=== PATIENT | male | born 1995 | race African-American/Black ===

== ENCOUNTER 2017-06-06 01:42 | Emergency (ER) | payer SELFPAY ==
[~2017-06-06] VITALS: Ht 170.2 cm; Wt 61.2 kg
--- NOTE | 2017-06-06 01:47 | ED.ADGEN ---
Past History Past Medical History: No Pertinent History, Other Past Surgical History: No Surgical History Alcohol Use: None Drug Use: None Adult General Chief Complaint Chief Complaint " .. I ate a slice of moldy bread the other day.. and I ve been sick since.. vomiting... no stool... ",," I actually started vomiting Monday after heavy drinking.. but today I think I am vomiting now because of moldy bread my mom gave me.." HPI HPI Patient is a 21 year old male who presents with above hx and complaints of abdomen pain. Pt. complaints of generalized abdomen pain. No travel or specific ill contacts. Pt. denies immuno suppression. Possible food poisoning. No travel or trauma hx. Does of hx heavy alcohol use this past weekend. . Review of Systems Review of Systems Constitutional: Denies fever or chills [] Eyes: Denies change in visual acuity, redness, or eye pain [] HENT: Denies nasal congestion or sore throat [] Respiratory: Denies cough or shortness of breath [] Cardiovascular: No additional information not addressed in HPI [] GIcomplailnts of abdominal pain, nausea, vomiting, . Denies bloody stools or diarrhea [] : Denies dysuria or hematuria [] Musculoskeletal: Denies back pain or joint pain [] Integument: Denies rash or skin lesions [] Neurologic: Denies headache, focal weakness or sensory changes [] Endocrine: Denies polyuria or polydipsia [] Family History Family History Non-contributory Current Medications Current Medications Current Medications Medications (Trade) Dose Ordered Sig/[place] Start Time Stop Time Status Last Admin Dose Admin Famotidine (Pepcid) 20 mg 1X ONCE 06/06/17 02:00 06/06/17 02:02 DC 06/06/17 02:20 20 MG Info (Do NOT chart on this entry -- for MONITORING) 1 each PRN DAILY PRN 06/06/17 03:15 06/06/17 04:38 DC Iohexol (Omnipaque 240 Mg/ml) 30 ml 1X ONCE 06/06/17 03:30 06/06/17 03:31 DC 06/06/17 03:26 30 ML Iohexol (Omnipaque 300 Mg/ml) 75 ml 1X ONCE 06/06/17 03:30 06/06/17 03:31 DC 06/06/17 03:26 75 ML Lactated Ringer's 1,000 ml @ 1,000 mls/hr Q1H 06/06/17 02:00 06/06/17 02:20 DC 06/06/17 02:19 1,000 MLS/HR Magnesium Hydroxide (Milk Of Magnesia) 2,400 mg 1X ONCE 06/06/17 02:30 06/06/17 02:31 DC 06/06/17 02:40 2,400 MG Ondansetron HCl (Zofran) 8 mg 1X ONCE 06/06/17 03:00 06/06/17 03:01 DC 06/06/17 02:56 8 MG Allergies Allergies Allergies Coded Allergies Type Severity Reaction Last Updated Verified amoxicillin Allergy Intermediate 06/06/17 Yes Physical Exam Physical Exam Constitutional: Well developed, well nourished, in mild to moderate distress, non-toxic appearance. [] HENT: Normocephalic, atraumatic, bilateral external ears normal, oropharynx moist, no oral exudates, nose normal. [] Eyes: PERRLA, EOMI, conjunctiva normal, no discharge. [] Neck: Normal range of motion, no tenderness, supple, no stridor. [] Cardiovascular:Heart rate regular rhythm, no murmur [] Lungs & Thorax: Bilateral breath equal apex with scattered wheezes on auscultation [] Abdomen: Bowel sounds normal, soft, generalize tenderness, no masses, no pulsatile masses. [] Pt. declines rectal at this time. Skin: Warm, dry, no erythema, no rash. [] Back: No tenderness, no CVA tenderness. [] Extremities: No tenderness, no cyanosis, no clubbing, ROM intact, no edema. [] Klaudia. . Psoas or heel tap. Neurologic: Alert and oriented X 3, normal motor function, normal sensory function, no focal deficits noted. [] Psychologic: Affect normal, judgement normal, mood normal. [] Current Patient Data Vital Signs Vital Signs Date Time Temp Pulse Resp B/P (MAP) Pulse Ox O2 Delivery O2 Flow Rate FiO2 06/06/17 04:26 98.5 54 20 133/77 (95) 99 Room Air Lab Results Laboratory Tests Test 06/06/17 02:05 06/06/17 03:45 White Blood Count 9.2 x10^3/uL (4.0-11.0) Red Blood Count 5.24 x10^6/uL (4.30-5.70) Hemoglobin 16.4 g/dL (13.0-17.5) Hematocrit 48.8 % (39.0-53.0) Mean Corpuscular Volume 93 fL (79-100) Mean Corpuscular Hemoglobin 31 pg (25-35) Mean Corpuscular Hemoglobin Concent 34 g/dL (31-37) Red Cell Distribution Width 12.1 % (11.5-14.5) Platelet Count 157 x10^3/uL (140-400) Neutrophils (%) (Auto) 75 % (31-73) H Lymphocytes (%) (Auto) 18 % (24-48) L Monocytes (%) (Auto) 6 % (0-9) Eosinophils (%) (Auto) 1 % (0-3) Basophils (%) (Auto) 1 % (0-3) Neutrophils # (Auto) 6.9 x10^3uL (1.8-7.7) Lymphocytes # (Auto) 1.7 x10^3/uL (1.0-4.8) Monocytes # (Auto) 0.5 x10^3/uL (0.0-1.1) Eosinophils # (Auto) 0.1 x10^3/uL (0.0-0.7) Basophils # (Auto) 0.1 x10^3/uL (0.0-0.2) Sodium Level 140 mmol/L (136-145) Potassium Level 3.6 mmol/L (3.5-5.1) Chloride Level 102 mmol/L (98-107) Carbon Dioxide Level 31 mmol/L (21-32) Anion Gap 7 (6-14) Blood Urea Nitrogen 15 mg/dL (8-26) Creatinine 1.1 mg/dL (0.7-1.3) Estimated GFR (Cockcroft-Gault) 100.4 BUN/Creatinine Ratio 14 (6-20) Glucose Level 109 mg/dL (70-99) H Calcium Level 9.5 mg/dL (8.5-10.1) Total Bilirubin 1.1 mg/dL (0.2-1.0) H Direct Bilirubin 0.2 mg/dL (0.0-0.2) Aspartate Amino Transferase (AST) 38 U/L (15-37) H Alanine Aminotransferase (ALT) 81 U/L (16-63) H Alkaline Phosphatase 50 U/L (46-116) Total Protein 7.6 g/dL (6.4-8.2) Albumin 4.4 g/dL (3.4-5.0) Albumin/Globulin Ratio 1.4 (1.0-1.7) Amylase Level 111 U/L (25-115) Lipase 144 U/L (73-393) Urine Collection Type Unknown Urine Color Yellow Urine Clarity Clear Urine pH 6.5 Urine Specific [place] 1.020 Urine Protein Neg (NEG-TRACE) Urine Glucose (UA) Neg mg/dL (NEG) Urine Ketones (Stick) Neg mg/dL (NEG) Urine Blood Trace (NEG) Urine Nitrite Neg (NEG) Urine Bilirubin Neg (NEG) Urine Urobilinogen Dipstick 1 mg/dL (0.2 mg/dL) Urine Leukocyte Esterase Neg (NEG) Urine RBC 0 /HPF (0-2) Urine WBC Occ /HPF (0-4) Urine Squamous Epithelial Cells Occ /LPF Urine Bacteria 0 /HPF (0-FEW) Urine Opiates Screen Neg (NEG) Urine Methadone Screen Neg (NEG) Urine Barbiturates Neg (NEG) Urine Phencyclidine Screen Neg (NEG) Urine Amphetamine/Methamphetamine Neg (NEG) Urine Benzodiazepines Screen Neg (NEG) Urine Cocaine Screen Neg (NEG) Urine Cannabinoids Screen Pos (NEG) Urine Ethyl Alcohol Neg (NEG) EKG EKG [] Radiology/Procedures Radiology/Procedures My interpretation acute abdomen film shows, with chest no acute cardiopulmonary findings. No free air under the diaphragm. Nonspecific bowel gas pattern. There is stool in the colon. CT= shows no hydronephrosis or obstructive bowel pattern. Course & Med Decision Making Course & Med Decision Making Pertinent Labs and Imaging studies reviewed. (See chart for details) Pt. to remain on clear fluid diet x 48 hrs. Follow up labs and xray s here with primary care. Tylenol and ibuprofen for discomfort. Zofran for nausea and vomiting. Zantac 150 bid. Must follow up. [] Final Impression Final Impression 1. Abdomen pain [] 2. Nausea and vomiting 3. Gastritis Problems: Dragon Disclaimer Dragon Disclaimer This electronic medical record was generated, in whole or in part, using a voice recognition dictation system. GRAZYNA NEWTON MD Jun 06, 2017 01:47
[2017-06-06] MEDS ORDERED: IV RINGERS SOLUTION,LACTATED 1,000 ML IV SCH (02:00)
[2017-06-06] MEDS ORDERED: ONDANSETRON PF 4 MG/2 ML VIAL. IV ONE ×2 (02:00→03:00)
[2017-06-06] MEDS ORDERED: FAMOTIDINE 20 MG/2 ML VIAL IVP ONE (02:00)
[2017-06-06 02:27] LABS: BASO # 0.1 x10^3/uL (0.0-0.2); BASO % 1 % (0-3); EOS # 0.1 x10^3/uL (0.0-0.7); EOS % 1 % (0-3); HEMATOCRIT 48.8 % (39.0-53.0); HEMOGLOBIN 16.4 g/dL (13.0-17.5); LYMPH # 1.7 x10^3/uL (1.0-4.8); LYMPH % 18 % (24-48); MEAN CORPUSCULAR HEMOGLOBIN 31 pg (25-35); MEAN CORPUSCULAR HGB CONC 34 g/dL (31-37); MEAN CORPUSCULAR VOLUME 93 fL (79-100); MONO # 0.5 x10^3/uL (0.0-1.1); MONO % 6 % (0-9); NEUT # 6.9 x10^3uL (1.8-7.7); NEUT % 75 % (31-73); PLATELET COUNT 157 x10^3/uL (140-400); RED BLOOD COUNT 5.24 x10^6/uL (4.30-5.70); RED CELL DISTRIBUTION WIDTH 12.1 % (11.5-14.5); WHITE BLOOD COUNT 9.2 x10^3/uL (4.0-11.0)
[2017-06-06] MEDS ORDERED: MAGNESIUM HYDROXIDE 2,400 MG/30 ML ORAL.SUSP. PO ONE (02:30)
[2017-06-06 02:43] LABS: ALBUMIN 4.4 g/dL (3.4-5.0); ALBUMIN/GLOBULIN RATIO 1.4 (1.0-1.7); CALCIUM 9.5 mg/dL (8.5-10.1); CREATININE 1.1 mg/dL (0.7-1.3); DIRECT BILIRUBIN 0.2 mg/dL (0.0-0.2); GFR 100.4; POTASSIUM 3.6 mmol/L (3.5-5.1); TOTAL BILIRUBIN 1.1 mg/dL (0.2-1.0); TOTAL PROTEIN 7.6 g/dL (6.4-8.2)
[2017-06-06] MEDS ORDERED: CONTRAST GIVEN MC PRN (03:15)
[2017-06-06] MEDS ORDERED: IOHEXOL 300 MG/ML 75 ML VIAL. IV ONE (03:30)
[2017-06-06] MEDS ORDERED: IOHEXOL 240 MG/ML 50ML VIAL. PO ONE (03:30)
--- NOTE | 2017-06-06 03:54 | RAD ---
INDICATION: [id number] Omni 300 75cc: Severe left and lower abdominal pain tonight with nausea and vomiting. No priors. COMPARISON: None. TECHNIQUE: Axial CT images were obtained through the abdomen and pelvis with intravenous contrast. One or more of the following individualized dose reduction techniques were utilized for this examination: 1. Automated exposure control; 2. Adjustment of the mA and/or kV according to patient size; 3. Use of iterative reconstruction technique. FINDINGS: Chest Base: Partially imaged without gross abnormality. Vessels: No abdominal aortic aneurysm. Liver/Biliary: No intrahepatic biliary duct dilation. Pancreas: No peripancreatic edema. Spleen: Normal. Kidneys/Adrenal: No hydronephrosis. Bladder: No definite adjacent inflammation. GI: No free air. No bowel dilation to suggest obstruction. Moderate stool is seen throughout the colon. Appendix is not well seen. IMPRESSION: 1. No evidence of hydronephrosis or bowel obstruction. Electronically signed by: Goyo Rodriguez MD (06/06/2017 3:51 AM) [id number]
[2017-06-06 03:57] LABS: BARBITURATES NEG (NEG); BENZODIAZEPINES NEG (NEG); CANNABINOIDS POS (NEG); COCAINE NEG (NEG); METHADONE NEG (NEG); OPIATES NEG (NEG); PHENCYCLIDINE NEG (NEG)
[2017-06-06 03:59] LABS: BILIRUBIN,URINE NEG (NEG); CLARITY,URINE CLEAR; COLOR,URINE YELLOW; GLUCOSE,URINE NEG (NEG); NITRITE,URINE NEG (NEG); UROBILINOGEN,URINE 1 mg/dL (0.2 mg/dL)
[2017-06-06 04:00] LABS: BACTERIA,URINE 0 /HPF (0-FEW); RBC,URINE 0 /HPF (0-2); SQUAMOUS EPITHELIAL CELL,UR OCC /LPF; WBC,URINE OCC /HPF (0-4)
[2017-06-06 04:03] LABS: AMPHETAMINE/METHAMPHETAMINE NEG (NEG)
[2017-06-06] MEDS ORDERED: ONDA8TAB12 PO (04:15)
[2017-06-06] MEDS ORDERED: RANI150T6 PO (04:15)
[2017-06-06 04:26] VITALS: BP 133/77
--- NOTE | 2017-06-06 09:09 | RAD ---
Acute abdomen series with chest, 3 views, 06/06/2017: History: Abdominal pain There is gas and stool in scattered portions of the colon in a nonspecific pattern. No free air is present in the abdomen. There is no evidence of organomegaly or abnormal abdominal calcification. The heart size is normal. The lungs are clear. IMPRESSION: No acute abdominal abnormality is detected.
== END 2017-06-06 04:26 | disposition home or self-care (01) ==
LOC: ER 01:42
DX: K29.70 Gastritis, unspecified, without bleeding (principal); Z88.1 Allergy status to other antibiotic agents
CPT/HCPCS: 36415; 74022; 74177; 80053; 80076; 80307; 81001; 82150; 83690; 85025; 96361; 96374; 96375; 96376; 99285; J2405; J7120; Q9966; Q9967; S0028; G0479